=== PATIENT | male | born 1960 | race African-American/Black ===

== ENCOUNTER 2018-05-21 04:07 | Emergency (ER) | payer SELFPAY ==
[2018-05-21] MEDS ORDERED: Cyclobenzaprine 10 MG TAB ONE (05:30)
[2018-05-21] MEDS ORDERED: Ketorolac Tromethamine 60 MG/2 ML VIAL ONE (05:30)
[2018-05-21] MEDS ORDERED: Acetaminophen/Codeine 30-300mg Tablet ONE (06:34)
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
== END 2018-05-21 08:50 | disposition home or self-care (01) ==
LOC: MADERS 04:07
DX: S22.089A Unspecified fracture of T11-T12 vertebra, initial encounter for closed fracture (principal); S32.019A Unspecified fracture of first lumbar vertebra, initial encounter for closed fracture; S80.212A Abrasion, left knee, initial encounter; S80.211A Abrasion, right knee, initial encounter; V69.9XXA Occupant (driver) (passenger) of heavy transport vehicle injured in unspecified traffic accident, initial encounter
CPT/HCPCS: 72125; 72131; J1885